=== PATIENT | male | born 1940 | race Native Hawaiian/Other Pacific Islander ===

== ENCOUNTER 2019-05-31 17:18 | Emergency (ER) | payer OTHER ==
[~2019-05-31] VITALS: Ht 167.6 cm; Wt 63.5 kg
[2019-05-31 17:18] VITALS: BP_SYST 111
--- NOTE | 2019-05-31 17:23 | NUR ---
Placed in room 01 . Placed on captain's assistant, blood pressure machine and pulse oximeter. To gown for exam. Side rails up.
--- NOTE | 2019-05-31 17:30 | NUR ---
pt arrived via BLS for being combattive towards a male staff and unappropriate behavior towards a female staff. Pt is here for medical clearance
[2019-05-31] MEDS ORDERED: DONE10TA44 PO (17:41)
[2019-05-31] MEDS ORDERED: ROSU20TA PO (17:41)
[2019-05-31] MEDS ORDERED: LOSA50TA3 PO (17:41)
[2019-05-31] MEDS ORDERED: LORA-258 PO (17:41)
[2019-05-31] MEDS ORDERED: NIFE90TA24 PO (17:41)
[2019-05-31] MEDS ORDERED: HYDR-4038 PO (17:41)
[2019-05-31] MEDS ORDERED: LEVE500T9 PO (17:41)
[2019-05-31] MEDS ORDERED: DEPAK250 PO (17:41)
[2019-05-31] MEDS ORDERED: FINA5TAB3 PO (17:41)
[2019-05-31] MEDS ORDERED: MEMA10TA PO (17:41)
[2019-05-31] MEDS ORDERED: TIMO5DRO15 OP (17:41)
[2019-05-31] MEDS ORDERED: MELA3TAB PO (17:41)
[2019-05-31] MEDS ORDERED: DOCU250C14 PO (17:41)
[2019-05-31] MEDS ORDERED: ESCI10TA PO (17:41)
[2019-05-31] MEDS ORDERED: ASPI-1153 PO (17:41)
[2019-05-31] MEDS ORDERED: CAT.1 PO (17:41)
[2019-05-31] MEDS ORDERED: BRI.2% OP (17:41)
[2019-05-31] MEDS ORDERED: ACET-2634 PO (17:41)
[2019-05-31] MEDS ORDERED: TAMS-11 PO (17:41)
--- NOTE | 2019-05-31 17:42 | NUR ---
Medication reconciliation completed with information provided by [facility]. Any prior medication reconciliation on file was reviewed and corrected.
--- NOTE | 2019-05-31 17:50 | NUR ---
ER at bedside examining patient.
[2019-05-31 18:04] LABS: BARBITURATE, URINE NEGATIVE (NEG <=200); BENZODIAZEPINE, URINE NEGATIVE (NEG <=150); CANNABINOID, URINE NEGATIVE (NEG <=50); COCAINE, URINE NEGATIVE (NEG <=150); METHAMPHETAMINES SCREEN,URINE NEGATIVE (NEG <=500); OPIATE, URINE NEGATIVE (NEG <=100); PHENCYCLIDINE SCREEN,URINE NEGATIVE (NEG <=25); UR TRICYCLIC ANTIDEPRESSANTS NEGATIVE (NEG <=300); URINE AMPHETAMINE NEGATIVE (NEG <=500); URINE METHADONE NEGATIVE (NEG <=200); URINE OXYCODONE SCREEN NEGATIVE (NEG <=100); URINE PROPOXYPHENE SCREEN NEGATIVE (NEG <=300)
[2019-05-31 18:08] LABS: BASOPHILS % (AUTO) 0.3 % (0.0-2.0); EOSINOPHILS # (AUTO) 0.1 K/uL (0.0-0.4); EOSINOPHILS % (AUTO) 1.2 % (0.0-4.0); HEMATOCRIT 33.3 % (36-54); HEMOGLOBIN 11.1 g/dL (14.0-18.0); LYMPHOCYTES # (AUTO) 1.5 K/uL (1.0-5.5); LYMPHOCYTES % (AUTO) 21.2 % (20.5-51.5); MEAN CORPUSCULAR HEMOGLOBIN 34 pg (27-31); MEAN CORPUSCULAR HGB CONC 33 % (32-36); MEAN CORPUSCULAR VOLUME 101 fL (79.0-98.0); MONOCYTES # (AUTO) 0.5 K/uL (0.0-1.0); MONOCYTES % (AUTO) 6.4 % (1.7-9.3); NEUTROPHILS # (AUTO) 5.1 K/uL (1.8-7.7); NEUTROPHILS % (AUTO) 70.9 % (40.0-70.0); PLATELET COUNT (AUTO) 161 K/uL (130-430); RED BLOOD CELL COUNT(AUTO) 3.31 MIL/uL (4.2-6.2); RED CELL DISTRIBUTION WIDTH 13.6 % (9.0-15.0); WHITE BLOOD COUNT (AUTO) 7.2 K/uL (4.8-10.8)
--- NOTE | 2019-05-31 18:10 | NUR ---
CHARLA and Phillip colleceted from the pt.
[2019-05-31 18:12] LABS: BILIRUBIN,URINE NEGATIVE (NEGATIVE); BLOOD, URINE NEGATIVE (NEGATIVE); CLARITY/URINE CLEAR (CLEAR); COLOR,URINE YELLOW (YELLOW); GLUCOSE,URINE 1+ (NEGATIVE); KETONES,URINE NEGATIVE (NEGATIVE); LEUKOCYTE ESTERASE ,URINE NEGATIVE (NEGATIVE); NITRITE, URINE NEGATIVE (NEGATIVE); PH,URINE 6.5 (5.0-8.0); PROTEIN URINE 2+ (NEGATIVE)
[2019-05-31 18:24] LABS: ANION GAP 7 (5-15); CALCIUM 8.7 mg/dL (8.4-11.0); CHLORIDE 109 mmol/L (98-107); CREATININE 1.98 mg/dL (0.55-1.30); GLUCOSE 158 mg/dL (70-99); POTASSIUM 4.7 mmol/L (3.5-5.1); SODIUM SERUM 145 mmol/L (136-145); UREA NITROGEN, BLOOD 39 mg/dL (8-21)
[2019-05-31 18:25] LABS: BACTERIA,URINE FEW /HPF (None Seen); MUCUS,URINE None Seen /LPF (None Seen); RBC,URINE 0-3 /HPF (0-3); WBC,URINE NONE SEEN /HPF (0-3)
[2019-05-31 18:30] LABS: ALANINE AMINOTRANSFERASE 24 U/L (12-78); ALBUMIN 3.1 g/dL (3.4-4.8); ASPARTATE AMINOTRANSFERASE 14 U/L (10-37); TOTAL BILIRUBIN 0.3 mg/dL (0.0-1.0)
[2019-05-31 18:32] LABS: ALCOHOL, BLOOD < 3 mg/dL (<10)
[2019-05-31] MEDS ORDERED: IBUPROFEN 600 MG TABLET PO ONE (18:45)
--- NOTE | 2019-05-31 19:20 | NUR ---
Care endorsed to Mir FRANCO
[2019-05-31 20:00] VITALS: BP_SYST 131
--- NOTE | 2019-05-31 20:00 | NUR ---
Patient to be transferred to [facility]. Is being transferred due to higher level of care. Receiving facility has accepting physician and available space. ER physician has signed transfer form. Patient or responsible libertarian has agreed to transfer and signed form. Patient belongings inventoried and will be sent with patient. Copy of nursing notes, lab reports, EKG, Physicians Orders and X-rays to be sent with patient. Report called to JOAN JETER at receiving facility. Receiving physician aware. [facility] ambulance service has been called for transfer. ETA is [id number].
[2019-06-01 11:44] LABS: CHOLESTEROL 103 mg/dL (<200); TRIGLYCERIDES 148 mg/dL (30-150)
[2019-06-01 11:45] LABS: HDL CHOLESTEROL 45 mg/dL (>45); LDL CHOLESTEROL 42 mg/dL (<100); VALPROIC ACID 29 ug/mL (50-100)
[2019-06-02 09:11] LABS: CHOLESTEROL 109 mg/dL (<200); LDL CHOLESTEROL 47 mg/dL (<100); TRIGLYCERIDES 54 mg/dL (30-150); VALPROIC ACID 29 ug/mL (50-100)
[2019-06-02 09:30] LABS: HDL CHOLESTEROL 53 mg/dL (>45)
== END 2019-05-31 20:00 ==
LOC: SED 17:18
DX: M25.552 Pain in left hip (principal); R86.0 Abnormal level of enzymes in specimens from male genital organs; E11.9 Type 2 diabetes mellitus without complications; F03.90 Unspecified dementia, unspecified severity, without behavioral disturbance, psychotic disturbance, mood disturbance, and anxiety; I10 Essential (primary) hypertension; Z86.79 Personal history of other diseases of the circulatory system; Z79.82 Long term (current) use of aspirin; Z79.899 Other long term (current) drug therapy; Z88.8 Allergy status to other drugs, medicaments and biological substances
CPT/HCPCS: 36415; 72170; 80053; 80061; 80164; 80307; 81000; 83036; 85025; 87081; 99285; G0482